=== PATIENT | male | born 1990 | race Caucasian/White ===

== ENCOUNTER 2018-11-20 08:26 | Inpatient (IN) | payer MEDICAID, OTHER ==
[~2018-11-20] VITALS: Ht 167.6 cm; Wt 68.0 kg
[~2018-11-20 08:26] MED LIST: CITA-107 PO; DIPH25 PO; RISP1 PO
[2018-11-20] MEDS ORDERED: LORazepam 2 MG TABLET PO ONE (10:00)
[2018-11-20] MEDS ORDERED: HALOPERIDOL 5 MG TABLET PO ONE (10:00)
[2018-11-20 10:14] LABS: BASOPHILS % (AUTO) 0.4 % (0.0-2.0); EOSINOPHILS % (AUTO) 1.8 % (1.0-6.0); HEMATOCRIT 44.1 % (41-53); HEMOGLOBIN 14.8 g/dL (13.5-17.5); LYMPHOCYTES # (AUTO) 1.8 K/uL (1.0-4.8); MEAN CORPUSCULAR HEMOGLOBIN 31.2 pg (26.0-34.0); MEAN CORPUSCULAR HGB CONC 33.6 G/dL (31.0-37.0); MEAN CORPUSCULAR VOLUME 93 fL (80-100); MONOCYTES # (AUTO) 0.8 K/uL (0.1-1.0); MONOCYTES % (AUTO) 13.3 % (2.0-9.0); NEUTROPHILS # (AUTO) 3.4 K/uL (1.8-7.7); NEUTROPHILS % (AUTO) 55.5 % (40.0-70.0); PLATELET COUNT (AUTO) 254 K/uL (150-450); RED BLOOD CELL COUNT(AUTO) 4.74 MIL/uL (4.50-5.90); RED CELL DISTRIBUTION WIDTH 12.8 % (11.5-14.5)
[2018-11-20 10:15] LABS: AMPHET/METH SCREEN,URINE POSITIVE (NEGATIVE); BARBITURATE SCREEN, URINE NEGATIVE (NEGATIVE); BENZODIAZEPINES SCREEN,URINE NEGATIVE (NEGATIVE); CANNABINOID SCREEN,URINE POSITIVE (NEGATIVE); COCAINE SCREEN,URINE NEGATIVE (NEGATIVE); METHADONE SCREEN, URINE NEGATIVE (NEGATIVE); OPIATE SCREEN,URINE NEGATIVE (NEGATIVE)
[2018-11-20 10:16] LABS: PHENCYCLIDINE SCREEN,URINE NEGATIVE (NEGATIVE)
[2018-11-20 10:23] LABS: ANION GAP 11 mmol/L (8-16); CALCIUM, TOTAL 9.4 mg/dL (8.8-10.5); CARBON DIOXIDE 25 mmol/L (22-29); CHLORIDE 103 mmol/L (98-107); CREATININE 1.08 mg/dL (0.60-1.30); GLOMERULAR FILTR. RATE CALC > 60 mL/min (>60); GLUCOSE,RANDOM 85 mg/dL (70-110); POTASSIUM 3.9 mmol/L (3.5-5.1); SODIUM SERUM 139 mmol/L (136-145); UREA NITROGEN, BLOOD 15 mg/dL (7-18)
[2018-11-20 10:28] LABS: ALANINE AMINOTRANSFERASE 26 U/L (12-78); ALBUMIN 4.4 g/dL (3.4-5.0); ALKALINE PHOSPHATASE 71 U/L (46-116); ASPARTATE AMINOTRANSFERASE 21 U/L (15-37); BILIRUBIN,TOTAL 0.5 mg/dL (0.1-1.0); TOTAL PROTEIN, SERUM 7.3 g/dL (6.4-8.2)
[2018-11-20] MEDS ORDERED: ZOLPIDEM TARTRATE 10 MG TABLET PO PRN (14:30)
[2018-11-20] MEDS ORDERED: HALOPERIDOL 5 MG TABLET PO PRN (14:30)
[2018-11-20 18:22] VITALS: BP 124/61
[2018-11-20] MEDS ORDERED: LOPERAMIDE HCL 2 MG CAPSULE PO PRN (19:00)
[2018-11-20] MEDS ORDERED: MAG HYDROX/AL HYDROX/SIMETH ES 30 ML SUSPENSION UDCUP PO PRN (19:00)
[2018-11-20] MEDS ORDERED: DOCUSATE SODIUM 100 MG CAPSULE PO PRN (19:00)
[2018-11-20] MEDS ORDERED: CloNIDine HCL 0.1 MG TABLET PO PRN (19:00)
[2018-11-20] MEDS ORDERED: ONDANSETRON HCL 4 MG TABLET PO PRN (19:00)
[2018-11-20] MEDS ORDERED: PETROLATUM,WHITE 28 GM JELLY TP PRN (19:00)
[2018-11-20] MEDS ORDERED: NICOTINE 14 MG/24 HOUR PATCH TD PRN (19:00)
[2018-11-20] MEDS ORDERED: GuaiFENesin/D-METHORPHAN [SUGAR-FREE] 200-20MG/10 ML SYRUP UDCUP PO PRN (19:00)
[2018-11-20] MEDS ORDERED: IBUPROFEN 400 MG TABLET PO PRN (19:00)
[2018-11-20] MEDS ORDERED: ALBUTEROL SULFATE HFA 90 MCG/PUFF 8 GM INHALER IH PRN (19:00)
[2018-11-20] MEDS ORDERED: ACETAMINOPHEN 325 MG TABLET PO PRN (19:00)
[2018-11-20] MEDS ORDERED: MAGNESIUM HYDROXIDE SUSPENSION 30 ML UDCUP PO PRN (19:00)
[2018-11-20] MEDS: RisperiDONE 1 MG TABLET PO SCH (21:18)
[2018-11-21 06:38] LABS: HEMOGLOBIN A1C 5.5 % (4.5-6.2)
[2018-11-21 07:03] LABS: ALANINE AMINOTRANSFERASE 22 U/L (12-78); ALBUMIN 4.1 g/dL (3.4-5.0); ALKALINE PHOSPHATASE 67 U/L (46-116); ANION GAP 8 mmol/L (8-16); ASPARTATE AMINOTRANSFERASE 16 U/L (15-37); BILIRUBIN,TOTAL 0.5 mg/dL (0.1-1.0); CALCIUM, TOTAL 9.4 mg/dL (8.8-10.5); CARBON DIOXIDE 28 mmol/L (22-29); CHLORIDE 105 mmol/L (98-107); CHOL/HDL RATIO 3.2 (4.2-7.3); CHOLESTEROL 177 mg/dL (131-200); CREATININE 1.07 mg/dL (0.60-1.30); GLOMERULAR FILTR. RATE CALC > 60 mL/min (>60); GLUCOSE,RANDOM 97 mg/dL (70-110); HDL CHOLESTEROL 56 mg/dL (40-60); LDL CHOL (CALC.) 110 mg/dL (0-130); POTASSIUM 4.4 mmol/L (3.5-5.1); SODIUM SERUM 141 mmol/L (136-145); THYROID STIMULATING HORMONE 0.73 uIU/mL (0.36-3.74); TOTAL PROTEIN, SERUM 6.6 g/dL (6.4-8.2); TRIGLYCERIDES 54 mg/dL (15-150); UREA NITROGEN, BLOOD 17 mg/dL (7-18)
[2018-11-21 08:00] VITALS: BP 113/62
[2018-11-21] MEDS: RisperiDONE 1 MG TABLET PO SCH ×2 (08:28→16:36)
[2018-11-21 16:06] VITALS: BP 110/66
[2018-11-22 08:00] VITALS: BP 117/62
[2018-11-22] MEDS: RisperiDONE 1 MG TABLET PO SCH ×2 (08:27→16:21)
[2018-11-22] MEDS: LORazepam 2 MG TABLET PO PRN (14:53)
[2018-11-22 16:00] VITALS: BP 99/55
[2018-11-22] MEDS ORDERED: DiphenhydrAMINE HCL 50 MG/ML VIAL IM ONE (16:30)
[2018-11-22] MEDS ORDERED: DiphenhydrAMINE HCL 50 MG/ML VIAL ONE (16:31)
[2018-11-22 18:25] VITALS: BP 107/59
[2018-11-23 07:13] LABS: BASOPHILS % (AUTO) 0.6 % (0.0-2.0); EOSINOPHILS % (AUTO) 4.7 % (1.0-6.0); HEMATOCRIT 44.6 % (41-53); HEMOGLOBIN 14.8 g/dL (13.5-17.5); LYMPHOCYTES # (AUTO) 1.8 K/uL (1.0-4.8); LYMPHOCYTES % (AUTO) 33.1 % (22.0-44.0); MEAN CORPUSCULAR HEMOGLOBIN 31.3 pg (26.0-34.0); MEAN CORPUSCULAR HGB CONC 33.3 G/dL (31.0-37.0); MEAN CORPUSCULAR VOLUME 94 fL (80-100); MONOCYTES # (AUTO) 0.5 K/uL (0.1-1.0); MONOCYTES % (AUTO) 8.8 % (2.0-9.0); NEUTROPHILS # (AUTO) 2.9 K/uL (1.8-7.7); NEUTROPHILS % (AUTO) 52.8 % (40.0-70.0); PLATELET COUNT (AUTO) 252 K/uL (150-450); RED BLOOD CELL COUNT(AUTO) 4.74 MIL/uL (4.50-5.90); RED CELL DISTRIBUTION WIDTH 12.9 % (11.5-14.5)
[2018-11-23] MEDS: RisperiDONE 1 MG TABLET PO SCH ×2 (07:44→16:50)
[2018-11-23] MEDS: LORazepam 2 MG TABLET PO PRN (07:44)
[2018-11-23 07:58] LABS: ANION GAP 8 mmol/L (8-16); CALCIUM, TOTAL 9.3 mg/dL (8.8-10.5); CARBON DIOXIDE 28 mmol/L (22-29); CHLORIDE 105 mmol/L (98-107); CREATININE 1.02 mg/dL (0.60-1.30); GLOMERULAR FILTR. RATE CALC > 60 mL/min (>60); GLUCOSE,RANDOM 93 mg/dL (70-110); POTASSIUM 4.1 mmol/L (3.5-5.1); SODIUM SERUM 141 mmol/L (136-145); UREA NITROGEN, BLOOD 12 mg/dL (7-18)
[2018-11-23 08:44] VITALS: BP 134/59
[2018-11-23 16:00] VITALS: BP 132/80
[2018-11-24 01:58] VITALS: BP 117/69
[2018-11-24] MEDS: LORazepam 2 MG TABLET PO PRN (07:51)
[2018-11-24] MEDS: RisperiDONE 1 MG TABLET PO SCH (07:52)
[2018-11-24 08:00] VITALS: BP 114/65
[2018-11-24] MEDS ORDERED: RISP1 PO (13:15)
== END 2018-11-24 14:50 | disposition home or self-care (01) | DRG 750 ==
LOC: EMS 08:29 → 3EC 16:59
PROVIDERS: ADMIT Psychiatry & Neurology Psychiatry; ATTEND Psychiatry & Neurology Psychiatry
DX: F20.0 Paranoid schizophrenia (principal); F10.10 Alcohol abuse, uncomplicated; F11.90 Opioid use, unspecified, uncomplicated; F15.10 Other stimulant abuse, uncomplicated; K59.00 Constipation, unspecified; F17.210 Nicotine dependence, cigarettes, uncomplicated
CPT/HCPCS: 74018; 83036; 84443; G0480; J1200; Q0162